=== PATIENT | male | born 1990 | race Caucasian/White ===

== ENCOUNTER 2020-02-11 11:05 | Inpatient (IN) | payer MEDICAID, OTHER, SELFPAY ==
[~2020-02-11] VITALS: Ht 193 cm; Wt 99.1 kg
[~2020-02-11 11:05] MED LIST: NO HOME MEDS
[2020-02-11 11:32] LABS: BASOPHILS # (AUTO) 0.1 X10'3 (0-0.2); BASOPHILS % (AUTO) 0.8 % (0-1); EOSINOPHILS # (AUTO) 0.1 X10'3 (0-0.9); EOSINOPHILS % (AUTO) 1.3 % (0-6); HEMATOCRIT 44.2 % (42.0-52.0); HEMOGLOBIN 15.1 g/dl (14.0-17.9); LYMPHOCYTES # (AUTO) 1.6 X10'3 (1.1-4.8); LYMPHOCYTES % (AUTO) 23.6 % (21-51); MEAN CORPUSCULAR HEMOGLOBIN 30.1 PG (27.0-31.0); MEAN CORPUSCULAR HGB CONC 34.1 g/dL (33.0-36.5); MEAN CORPUSCULAR VOLUME 88.2 FL (78-98); MEAN PLATELET VOLUME 9.5 FL (7.4-10.4); MONOCYTES # (AUTO) 0.6 X10'3 (0-0.9); MONOCYTES % (AUTO) 9.6 % (2-12); NEUTROPHILS # (AUTO) 4.3 X10'3 (1.8-7.7); NEUTROPHILS % (AUTO) 64.7 % (42-75); PLATELET COUNT 200 X10'3 (140-440); RED BLOOD COUNT 5.01 X10'6 (4.70-6.10); RED CELL DISTRIBUTION WIDTH 12.6 % (11.5-14.5); WHITE BLOOD COUNT 6.6 X10'3 (4.5-11.0)
[2020-02-11] MEDS ORDERED: NO HOME MEDS (11:37)
[2020-02-11 11:42] LABS: PARTIAL THROMBOPLASTIN TIME 29 SECONDS (22-32)
[2020-02-11 11:49] LABS: ALANINE AMINOTRANSFERASE 27 U/L (12-78); ALBUMIN 4.4 G/DL (3.4-5.0); ALBUMIN/GLOBULIN RATIO 1.3 (1.1-1.5); ALKALINE PHOSPHATASE 103 IU/L (46-116); ANION GAP 5 (8-16); ASPARTATE AMINO TRANSFERASE 19 U/L (10-37); BILIRUBIN,TOTAL 0.4 MG/DL (0.1-1.0); BLOOD UREA NITROGEN 14 MG/DL (7-18); BUN/CREATININE RATIO 15.6 (5.4-32.0); CALCIUM 9.7 MG/DL (8.5-10.1); CHLORIDE 105 MMOL/L (99-107); GLUCOSE 76 MG/DL (70-104); POTASSIUM 4.3 MMOL/L (3.5-5.1); SODIUM 142 MMOL/L (135-145); TOTAL CARBON DIOXIDE 32.3 MMOL/L (24-32); TOTAL PROTEIN 7.9 G/DL (6.4-8.2); eGFR > 90 ML/MIN
[2020-02-11] MEDS ORDERED: magnesium Cl slow-release 64mg tablet PO PRN (13:50)
[2020-02-11] MEDS ORDERED: potassium Cl 20 mEq SR tablet PO PRN ×2 (13:50)
[2020-02-11] MEDS ORDERED: HYDROcodone/acetaminophen 5mg/325mg tablet PO PRN (13:50)
[2020-02-11] MEDS ORDERED: potassium CL 10mEq/100ml bag 100 ML IV PRN (13:50)
[2020-02-11] MEDS ORDERED: acetaminophen 325mg tablet PO PRN ×2 (13:50)
[2020-02-11] MEDS ORDERED: magnesium 2GM in 50ml NS 50 ML IV PRN (13:50)
[2020-02-11] MEDS ORDERED: magnesium hydroxide 30ml (MOM) UD suspension PO PRN (13:50)
[2020-02-11] MEDS ORDERED: mag hydrox/Alum hydrox/simeth 30ml oral suspension PO PRN (13:50)
[2020-02-11] MEDS ORDERED: morphine 2 MG/ML inj. syringe IV PRN (13:50)
[2020-02-11] MEDS ORDERED: ondansetron/PF 4mg/2ml inj IV PRN (13:50)
[2020-02-11] MEDS ORDERED: magnesium 4gm in 100ml NS 100 ML IV PRN (13:50)
[2020-02-11] MEDS: normal saline 1000ml 1,000 ML IV SCH (14:18)
[2020-02-11 14:45] VITALS: BP 135/88
[2020-02-11 18:00] VITALS: BP 115/72
--- NOTE | 2020-02-11 18:11 | NUR ---
Problems reprioritized. Patient report given, questions answered & plan of care reviewed with Sheron Sy RN.
--- NOTE | 2020-02-11 18:47 | NUR ---
Patient in room [facility]. I have received report from WHITNEY Mcfarland and had the opportunity to ask questions and assume patient care. Addendum: 02/11/20 at 1847 by Sheron Cerda RN Amended: Links added.
[2020-02-11] MEDS: heparin, porcine 5000 units/ml vial SQ SCH (19:50)
[2020-02-11] MEDS: K and/or MAG REPLACEMENT MC SCH (20:00)
[2020-02-11] MEDS ORDERED: temazepam 15mg capsule PO PRN (21:00)
[2020-02-12] VITALS (24 sets, daily range): BP systolic 93–163; BP diastolic 47–87
[2020-02-12] MEDS: normal saline 1000ml 1,000 ML IV SCH ×3 (00:07→19:21)
[2020-02-12 05:57] LABS: BASOPHILS % (AUTO) 0.5 % (0-1); EOSINOPHILS # (AUTO) 0.1 X10'3 (0-0.9); EOSINOPHILS % (AUTO) 1.1 % (0-6); HEMATOCRIT 41.1 % (42.0-52.0); LYMPHOCYTES # (AUTO) 2.1 X10'3 (1.1-4.8); LYMPHOCYTES % (AUTO) 27.6 % (21-51); MEAN CORPUSCULAR HEMOGLOBIN 29.7 PG (27.0-31.0); MEAN CORPUSCULAR VOLUME 87.4 FL (78-98); MEAN PLATELET VOLUME 9.7 FL (7.4-10.4); MONOCYTES # (AUTO) 0.7 X10'3 (0-0.9); NEUTROPHILS # (AUTO) 4.5 X10'3 (1.8-7.7); NEUTROPHILS % (AUTO) 60.8 % (42-75); PLATELET COUNT 186 X10'3 (140-440); RED CELL DISTRIBUTION WIDTH 12.8 % (11.5-14.5); WHITE BLOOD COUNT 7.4 X10'3 (4.5-11.0)
[2020-02-12] MEDS ORDERED: famotidine 20mg tablet PO ONE (06:00)
[2020-02-12] MEDS ORDERED: ringers solution, lacted 1,000 ML IV ONE (06:00)
[2020-02-12 06:16] LABS: ALANINE AMINOTRANSFERASE 23 U/L (12-78); ALBUMIN 3.8 G/DL (3.4-5.0); ALBUMIN/GLOBULIN RATIO 1.2 (1.1-1.5); ALKALINE PHOSPHATASE 90 IU/L (46-116); ANION GAP 6 (8-16); ASPARTATE AMINO TRANSFERASE 16 U/L (10-37); BILIRUBIN,TOTAL 0.7 MG/DL (0.1-1.0); BLOOD UREA NITROGEN 13 MG/DL (7-18); BUN/CREATININE RATIO 15.7 (5.4-32.0); CALCIUM 8.7 MG/DL (8.5-10.1); CHLORIDE 107 MMOL/L (99-107); CREATININE 0.83 MG/DL (0.60-1.10); GLUCOSE 90 MG/DL (70-104); POTASSIUM 4.1 MMOL/L (3.5-5.1); SODIUM 141 MMOL/L (135-145); eGFR > 90 ML/MIN
--- NOTE | 2020-02-12 06:31 | NUR ---
Problems reprioritized. Patient report given, questions answered & plan of care reviewed with WHITNEY Pereira.
--- NOTE | 2020-02-12 06:31 | NUR ---
Patient in room [facility]. I have received report from Lissy Law RN and had the opportunity to ask questions and assume patient care.
[2020-02-12] MEDS: heparin, porcine 5000 units/ml vial SQ SCH ×2 (07:14→19:22)
--- NOTE | 2020-02-12 07:14 | NUR ---
Heparin held. Pt is scheduled for surgery today.
[2020-02-12] MEDS: K and/or MAG REPLACEMENT MC SCH ×2 (08:00→20:00)
--- NOTE | 2020-02-12 09:28 | NUR ---
Chest X-Ray done this morning Radiologist reported right pneumothorax has increased from 3cm yesterday to 4cm today. Dr Wiley notified.
[2020-02-12] MEDS ORDERED: ondansetron/PF 4mg/2ml inj IV PRN ×2 (09:40→12:25)
[2020-02-12] MEDS ORDERED: labetalol 20mg/4ml (5mg/ml) syringe IV PRN (09:40)
[2020-02-12] MEDS ORDERED: hydrALAZINE 20mg/ml inj. IV PRN (09:40)
[2020-02-12] MEDS ORDERED: ringers solution, lacted 1,000 ML IV SCH (09:40)
[2020-02-12] MEDS ORDERED: morphine 4 MG/ML inj SYRINge IV PRN ×3 (09:40→12:25)
[2020-02-12] MEDS ORDERED: fentaNYL/PF 50MCG/1 ML 2ML syringe IV PRN ×2 (09:40)
[2020-02-12] MEDS ORDERED: morphine 2 MG/ML inj. syringe IV PRN (09:40)
[2020-02-12] MEDS ORDERED: BUPIVAcaine/PF 2.5mg/ml (0.25%) 10ml vial ONE (09:48)
[2020-02-12] MEDS ORDERED: rocuronium 10mg/ml inj IV ONE ×2 (09:49→11:24)
[2020-02-12] MEDS ORDERED: LIDOcaine 2% (20mg/ml) 5ml vial ONE (09:49)
[2020-02-12] MEDS ORDERED: propofol inj 20 ML IV ONE (09:49)
[2020-02-12] MEDS ORDERED: fentaNYL/PF 50MCG/1 ML 2ML syringe ONE (09:50)
[2020-02-12] MEDS ORDERED: BUPIVACAINE liposomal/PF 13.3 MG/ML vial IM ONE (09:50)
[2020-02-12] MEDS ORDERED: midazolam 2 mg/2 ml injection ONE (09:50)
[2020-02-12] MEDS ORDERED: sterile Talc 2 GM powder vial ONE ×2 (09:56→11:05)
--- NOTE | 2020-02-12 10:07 | NUR ---
Pt taken to OR. Report given to recovery nurse.
[2020-02-12] MEDS ORDERED: MIDAZolam 1mg/ml 10ml vial ONE (10:22)
[2020-02-12] MEDS ORDERED: sevoflurane 250ml liquid IH ONE (10:25)
[2020-02-12] MEDS ORDERED: ceFAZolin 1000mg inj ONE ×2 (11:07)
[2020-02-12] MEDS ORDERED: propofol 1000mg/100ml bottle 100 ML IV SCH (11:28)
[2020-02-12] MEDS ORDERED: albuterol 2.5 MG/3 ML nebule NEB PRN (12:25)
[2020-02-12] MEDS ORDERED: metoclopramide 5 mg/ml inj IV PRN (12:25)
[2020-02-12] MEDS ORDERED: CADD PCA waste documentation MC PRN (12:25)
[2020-02-12] MEDS ORDERED: HYDROcodone/acetaminophen 10/325mg tab PO PRN ×2 (12:25)
[2020-02-12] MEDS ORDERED: naloxone 0.4 mg/ml inj IV PRN (12:25)
--- NOTE | 2020-02-12 12:28 | NUR ---
PT RECEIVED TO ROOM 2042 FROM OR VIA BED ACCOMPANIED BY ANESTHESIOLOGIST DR RODAS, REPORT GIVEN. PT INTUBATED, 20 GAUGE ART LINE TO L WRIST, 20 GAUGE PIV L FA PATENT AND RUNNING LR AT 100 ML HR, F/C DRAINING CLEAR YELLOW URINE, 4X4 AND FOAM TAPE DRESSING CDI WITH CHEST TUBE TO LOW INTERMITTENT SUCTION RIGHT CHEST, SKIN PINK AND WARM, RICHARDSON, VSS, WRIST RESTRAINTS APPLIED BILATERALLY.
[2020-02-12] MEDS: FENTANYL-0.9 % NACL/PF 100 ML IV SCH ×2 (12:54→19:21)
[2020-02-12 12:56] LABS: ABG BASE EXCESS -2.4 mmol/L (-2.0-3.0); ABG HCO3 21.6 mmol/L (22.0-26.0); ABG PCO2 (T) 32.9 mmHg (35.0-45.0); ABG PO2 (T) 176.9 mmHg (83-108); FCOHb 0.3 % (0.5-1.5); FMetHb 0.2 % (0.3-1.12); FO2Hb 98.5 % (94-100); PATIENT TEMPERATURE 35.5; RESPIRATORY RATE 12 b/min; TIDAL VOLUME 650 mL; TOTAL HEMOGLOBIN 13.5 G/dl (14.0-17.9)
[2020-02-12] MEDS: propofol 1000mg/100ml bottle 100 ML IV SCH ×3 (12:57→20:55)
--- NOTE | 2020-02-12 13:18 | NUR ---
PT INTUBATED, 20 GAUGE ART LINE TO L WRIST, 20 GAUGE PIV L FA PATENT AND RUNNING LR AT 100 ML HR, F/C DRAINING CLEAR YELLOW URINE, 4X4 AND FOAM TAPE DRESSING CDI WITH CHEST TUBE TO LOW INTERMITTENT SUCTION RIGHT CHEST, SKIN PINK AND WARM, RICHARDSON, VSS, WRIST RESTRAINTS APPLIED BILATERALLY. SEE RT NOTES REGARDING VENTILATOR SETTINGS, LEFT IN CARE OF ICU NURSE DACIA
[2020-02-12] MEDS ORDERED: ceFAZolin inj. 1,000 MG in dextrose 5%-water 50ml 50 ML IV SCH (16:00)
[2020-02-12] MEDS: ceFAZolin 1GM/D5W- ADD-VANTAGE 50 ML IV SCH (17:28)
--- NOTE | 2020-02-12 18:26 | NUR ---
Patient report given, questions answered & plan of care reviewed with Rosa OLSON.
--- NOTE | 2020-02-12 18:30 | NUR ---
Patient in room ICU 2042. I have received report from WHITNEY Pollard and had the opportunity to ask questions and assume patient care. Patient intubated and sedated on the ventilator FiO2 40%. Patient with one chest tube to right chest, patent with air leak present.
[2020-02-12] MEDS: gabapentin 300mg capsule PO SCH (19:09)
[2020-02-12] MEDS: acetaminophen 325mg/10.15ml oral unit dose solution PO PRN (19:09)
[2020-02-13] VITALS (24 sets, daily range): BP systolic 83–178; BP diastolic 45–86
[2020-02-13] MEDS: propofol 1000mg/100ml bottle 100 ML IV SCH ×3 (00:03→13:24)
[2020-02-13] MEDS: dextrose 5%-normal saline 1,000 ML IV SCH ×2 (00:04→09:10)
[2020-02-13] MEDS: ceFAZolin 1GM/D5W- ADD-VANTAGE 50 ML IV SCH (00:14)
[2020-02-13] MEDS: acetaminophen 325mg/10.15ml oral unit dose solution PO PRN ×3 (01:30→20:04)
[2020-02-13 02:51] LABS: BASOPHILS % (AUTO) 0.4 % (0-1); EOSINOPHILS % (AUTO) 0.4 % (0-6); HEMATOCRIT 36.5 % (42.0-52.0); HEMOGLOBIN 12.4 g/dl (14.0-17.9); LYMPHOCYTES # (AUTO) 1.7 X10'3 (1.1-4.8); LYMPHOCYTES % (AUTO) 19.2 % (21-51); MEAN CORPUSCULAR HGB CONC 34.1 g/dL (33.0-36.5); MEAN CORPUSCULAR VOLUME 87.9 FL (78-98); MEAN PLATELET VOLUME 9.2 FL (7.4-10.4); MONOCYTES # (AUTO) 0.9 X10'3 (0-0.9); MONOCYTES % (AUTO) 10.4 % (2-12); NEUTROPHILS # (AUTO) 6.2 X10'3 (1.8-7.7); NEUTROPHILS % (AUTO) 69.6 % (42-75); PLATELET COUNT 139 X10'3 (140-440); RED BLOOD COUNT 4.15 X10'6 (4.70-6.10); RED CELL DISTRIBUTION WIDTH 12.6 % (11.5-14.5); WHITE BLOOD COUNT 8.9 X10'3 (4.5-11.0)
[2020-02-13 03:04] LABS: ALANINE AMINOTRANSFERASE 18 U/L (12-78); ALBUMIN 3.1 G/DL (3.4-5.0); ALBUMIN/GLOBULIN RATIO 1.2 (1.1-1.5); ALKALINE PHOSPHATASE 75 IU/L (46-116); ANION GAP 8 (8-16); ASPARTATE AMINO TRANSFERASE 19 U/L (10-37); BILIRUBIN,TOTAL 0.5 MG/DL (0.1-1.0); BLOOD UREA NITROGEN 9 MG/DL (7-18); BUN/CREATININE RATIO 10.8 (5.4-32.0); CALCIUM 7.9 MG/DL (8.5-10.1); CHLORIDE 108 MMOL/L (99-107); CREATININE 0.83 MG/DL (0.60-1.10); GLUCOSE 108 MG/DL (70-104); MAGNESIUM 1.6 MG/DL (1.5-2.4); POTASSIUM 3.4 MMOL/L (3.5-5.1); SODIUM 140 MMOL/L (135-145); TOTAL CARBON DIOXIDE 23.6 MMOL/L (24-32); TOTAL PROTEIN 5.7 G/DL (6.4-8.2); TRIGLYCERIDES 73 MG/DL (20-135); eGFR > 90 ML/MIN
[2020-02-13] MEDS: potassium CL 10mEq/100ml bag 100 ML IV PRN ×4 (03:46→07:23)
[2020-02-13] MEDS: FENTANYL-0.9 % NACL/PF 100 ML IV SCH ×2 (03:57→14:37)
--- NOTE | 2020-02-13 04:29 | NUR ---
[id number]: Patient awakens easily to verbal stimuli and with patient care activities. Patient able to follow commands and writes with pen and paper to communicate. Right chest tube with intermittent air leak, seems to resolve with repositioning to the right side. FiO2 on ventilator titrated down throughout shift. Patient is febrile temperature 38.7. Tylenol administered two separate times during shift per MD order. Ice packs to neck, groin and axilla applied to patient. Fan also at bedside. Temperature slowly decreasing. MD notified, hart cultures ordered.
[2020-02-13 04:31] LABS: ABG BASE EXCESS -2.5 mmol/L (-2.0-3.0); ABG HCO3 21.6 mmol/L (22.0-26.0); ABG OXYGEN SATURATION 97.1 % (95-98); ABG PCO2 (T) 37.3 mmHg (35.0-45.0); ABG PH (T) 7.386 (7.350-7.450); ABG PO2 (T) 102.7 mmHg (83-108); FMetHb 0.2 % (0.3-1.12); FO2Hb 96.9 % (94-100); PATIENT TEMPERATURE 38.1; PEEP 5 cm H2O; RESPIRATORY RATE 12 b/min; TIDAL VOLUME 650 mL; TOTAL HEMOGLOBIN 13.8 G/dl (14.0-17.9)
[2020-02-13] MEDS: normal saline 1000ml 1,000 ML IV SCH ×2 (05:02→19:57)
--- NOTE | 2020-02-13 06:30 | NUR ---
Patient in room ICU 2042. I have received report from Rosa OLSON and had the opportunity to ask questions and assume patient care.
--- NOTE | 2020-02-13 06:36 | NUR ---
Problems reprioritized. Patient report given, questions answered & plan of care reviewed with WHITNEY Jackson.
[2020-02-13] MEDS: K and/or MAG REPLACEMENT MC SCH ×2 (08:00→20:00)
[2020-02-13] MEDS: gabapentin 300mg capsule PO SCH ×2 (08:06→19:56)
[2020-02-13] MEDS: heparin, porcine 5000 units/ml vial SQ SCH ×2 (08:06→19:57)
[2020-02-13] MEDS ORDERED: dextrose 50%-water 50ml dispensing syringe IV ONE (08:22)
--- NOTE | 2020-02-13 08:34 | NUR ---
blood sugar 62, tx with D50 will re check in 15 min
--- NOTE | 2020-02-13 08:45 | NUR ---
patients blood sugar re check 104
--- NOTE | 2020-02-13 09:35 | NUR ---
patients sedation turned down, he woke up requesting to write a note, stated he was cold, wilson temp 38.8, temporal 36.8, axiallary 37.0. placed a warm blanket on patient, he has goose bumps, and is shivering. will rely on axillary temp from here on out
--- NOTE | 2020-02-13 14:47 | NUR ---
sedation turned off waiting for patient to wake up then we will extubate
--- NOTE | 2020-02-13 14:47 | NUR ---
Dr Wiley called stated to turn off all sedation and extubate patient
--- NOTE | 2020-02-13 15:00 | NUR ---
patient extubated, tolerated well, nc 2 L sating high 90's
[2020-02-13] MEDS ORDERED: HYDROmorphone inj. 0.5 MG/0.5 ML DISP.SYRIN IV PRN (15:20)
--- NOTE | 2020-02-13 15:20 | NUR ---
Dr. Wiley, by to assess patient, stated to D/C artline and steve, advance diet as tolerated one swallow eval is passed, pt eval, " get him up and walking"
--- NOTE | 2020-02-13 15:45 | NUR ---
Art line D/c, cannula intact patient tolerated well
--- NOTE | 2020-02-13 18:11 | NUR ---
Problems reprioritized. Patient report given, questions answered & plan of care reviewed with Bailey OLSON.
--- NOTE | 2020-02-13 18:30 | NUR ---
Patient in room ICU 2042. I have received report from Renetta OLSON and had the opportunity to ask questions and assume patient care.
[2020-02-14] VITALS (21 sets, daily range): BP systolic 98–133; BP diastolic 45–93
[2020-02-14] MEDS: normal saline 1000ml 1,000 ML IV SCH ×2 (01:46→11:46)
[2020-02-14] MEDS: acetaminophen 325mg/10.15ml oral unit dose solution PO PRN (02:20)
[2020-02-14 05:27] LABS: BASOPHILS % (AUTO) 0.1 % (0-1); EOSINOPHILS % (AUTO) 0.1 % (0-6); HEMATOCRIT 37.9 % (42.0-52.0); HEMOGLOBIN 12.8 g/dl (14.0-17.9); LYMPHOCYTES # (AUTO) 0.7 X10'3 (1.1-4.8); LYMPHOCYTES % (AUTO) 5.1 % (21-51); MEAN CORPUSCULAR HEMOGLOBIN 29.7 PG (27.0-31.0); MEAN CORPUSCULAR HGB CONC 33.7 g/dL (33.0-36.5); MEAN CORPUSCULAR VOLUME 88.1 FL (78-98); MONOCYTES % (AUTO) 7.2 % (2-12); NEUTROPHILS # (AUTO) 11.8 X10'3 (1.8-7.7); NEUTROPHILS % (AUTO) 87.5 % (42-75); PLATELET COUNT 153 X10'3 (140-440); RED CELL DISTRIBUTION WIDTH 12.3 % (11.5-14.5); WHITE BLOOD COUNT 13.5 X10'3 (4.5-11.0)
[2020-02-14 05:48] LABS: ALANINE AMINOTRANSFERASE 24 U/L (12-78); ALBUMIN 3.2 G/DL (3.4-5.0); ALBUMIN/GLOBULIN RATIO 0.9 (1.1-1.5); ALKALINE PHOSPHATASE 86 IU/L (46-116); ANION GAP 10 (8-16); ASPARTATE AMINO TRANSFERASE 47 U/L (10-37); BLOOD UREA NITROGEN 8 MG/DL (7-18); BUN/CREATININE RATIO 9.4 (5.4-32.0); CALCIUM 9.1 MG/DL (8.5-10.1); CHLORIDE 105 MMOL/L (99-107); CREATININE 0.85 MG/DL (0.60-1.10); GLUCOSE 161 MG/DL (70-104); MAGNESIUM 1.7 MG/DL (1.5-2.4); POTASSIUM 3.3 MMOL/L (3.5-5.1); SODIUM 139 MMOL/L (135-145); TOTAL CARBON DIOXIDE 24.5 MMOL/L (24-32); TOTAL PROTEIN 6.6 G/DL (6.4-8.2); eGFR > 90 ML/MIN
--- NOTE | 2020-02-14 06:42 | NUR ---
Patient in room ICU 2042. I have received report from Bailey OLSON and had the opportunity to ask questions and assume patient care.
[2020-02-14] MEDS: gabapentin 300mg capsule PO SCH (07:52)
[2020-02-14] MEDS: heparin, porcine 5000 units/ml vial SQ SCH ×2 (07:53→20:38)
[2020-02-14] MEDS: K and/or MAG REPLACEMENT MC SCH ×2 (08:06→20:00)
[2020-02-14] MEDS ORDERED: morphine 4 MG/ML inj SYRINge IM ONE (16:15)
--- NOTE | 2020-02-14 16:29 | NUR ---
Dr. Wiley by to assess patient and D/C chest tube, tube D/C with no complications. Patient pre medicated with 4mg of morphine. D/C glucose checks, and NS. Patient can transfer out of the ICU. no other new orders at this time
--- NOTE | 2020-02-14 18:40 | NUR ---
Patient in room ICU 2042. I have received report from Renetta OLSON and had the opportunity to ask questions and assume patient care.
--- NOTE | 2020-02-15 04:50 | NUR ---
patient refused 0200 vital signs
[2020-02-15 05:56] LABS: BASOPHILS # (AUTO) 0.1 X10'3 (0-0.2); BASOPHILS % (AUTO) 0.7 % (0-1); EOSINOPHILS # (AUTO) 0.1 X10'3 (0-0.9); EOSINOPHILS % (AUTO) 0.9 % (0-6); HEMATOCRIT 38.3 % (42.0-52.0); HEMOGLOBIN 13.1 g/dl (14.0-17.9); LYMPHOCYTES # (AUTO) 1.1 X10'3 (1.1-4.8); LYMPHOCYTES % (AUTO) 10.3 % (21-51); MEAN CORPUSCULAR HEMOGLOBIN 30.2 PG (27.0-31.0); MEAN CORPUSCULAR HGB CONC 34.2 g/dL (33.0-36.5); MEAN CORPUSCULAR VOLUME 88.1 FL (78-98); MEAN PLATELET VOLUME 9.5 FL (7.4-10.4); MONOCYTES % (AUTO) 9.7 % (2-12); NEUTROPHILS # (AUTO) 8.1 X10'3 (1.8-7.7); NEUTROPHILS % (AUTO) 78.4 % (42-75); PLATELET COUNT 171 X10'3 (140-440); RED BLOOD COUNT 4.35 X10'6 (4.70-6.10); RED CELL DISTRIBUTION WIDTH 12.6 % (11.5-14.5); WHITE BLOOD COUNT 10.3 X10'3 (4.5-11.0)
--- NOTE | 2020-02-15 06:12 | NUR ---
Problems reprioritized. Patient report given, questions answered & plan of care reviewed with Swathi OLSON.
[2020-02-15 06:21] LABS: ALANINE AMINOTRANSFERASE 26 U/L (12-78); ALBUMIN 3.4 G/DL (3.4-5.0); ALBUMIN/GLOBULIN RATIO 0.9 (1.1-1.5); ALKALINE PHOSPHATASE 84 IU/L (46-116); ANION GAP 10 (8-16); ASPARTATE AMINO TRANSFERASE 33 U/L (10-37); BILIRUBIN,TOTAL 0.8 MG/DL (0.1-1.0); BLOOD UREA NITROGEN 10 MG/DL (7-18); BUN/CREATININE RATIO 13.3 (5.4-32.0); CALCIUM 9.1 MG/DL (8.5-10.1); CHLORIDE 104 MMOL/L (99-107); CREATININE 0.75 MG/DL (0.60-1.10); GLUCOSE 95 MG/DL (70-104); MAGNESIUM 1.8 MG/DL (1.5-2.4); POTASSIUM 3.9 MMOL/L (3.5-5.1); SODIUM 138 MMOL/L (135-145); TOTAL CARBON DIOXIDE 23.9 MMOL/L (24-32); TOTAL PROTEIN 7.3 G/DL (6.4-8.2); eGFR > 90 ML/MIN
--- NOTE | 2020-02-15 06:29 | NUR ---
Patient in room PCU 3022. I have received report from Manda OLSON and had the opportunity to ask questions and assume patient care.
[2020-02-15 06:30] VITALS: BP 122/70
[2020-02-15] MEDS: acetaminophen 325mg/10.15ml oral unit dose solution PO PRN (07:16)
[2020-02-15] MEDS: heparin, porcine 5000 units/ml vial SQ SCH (07:16)
[2020-02-15] MEDS: K and/or MAG REPLACEMENT MC SCH (08:00)
[2020-02-15 11:00] VITALS: BP 123/70
[2020-02-15] MEDS ORDERED: traMADol 50MG tablet PO PRN (11:55)
[2020-02-15 15:00] VITALS: BP 118/70
[2020-02-15] MEDS ORDERED: TRAM50TA2 PO ×2 (15:53→16:01)
--- NOTE | 2020-02-15 16:37 | NUR ---
Per MD, patient stable for discharge home. Discharge packet completed and provided to patient, all questions answered. Hardcopy of Tramadol given to patient from Dr Wiley, as well as copy placed in chart. Patient given phone number for Dr Yoo office to call and make followup appt tomorrow. Patient also educated to leave bandage on surgical site until Friday, 02/17 and to cover site during shower. IV removed with catheter intact and tele monitor removed and returned to teletray operator. Patient escorted from hospital via wheelchair, accompanied by RN, and driven home with mother in private vehicle.
== END 2020-02-15 16:37 | disposition home or self-care (01) | DRG 121 ==
LOC: ER 11:05 → ED HOLD 13:46 → UNDOADMIN 13:46 → ED HOLD 14:02 → SUR 3N 15:00 → ED HOLD 15:00 → ICU 2S 02-12 12:30 → PCU 3S 02-14 20:16
PROVIDERS: ADMIT Internal Medicine; ATTEND Internal Medicine
PROC: 0BBC4ZZ Excision of Right Upper Lung Lobe, Percutaneous Endoscopic Approach (ICD-10-PCS; 2020-02-12)
PROC: 0W9940Z Drainage of Right Pleural Cavity with Drainage Device, Percutaneous Endoscopic Approach (ICD-10-PCS; 2020-02-12)
PROC: 0B5N4ZZ Destruction of Right Pleura, Percutaneous Endoscopic Approach (ICD-10-PCS; principal; 2020-02-12 10:25)
DX: J93.83 Other pneumothorax (principal); J30.2 Other seasonal allergic rhinitis
CPT/HCPCS: 36415; 36600; 71045; 71046; 80053; 82803; 82948; 83605; 83735; 84478; 84484; 85018; 85025; 85610; 85730; 87040; 87070; 87081; 87088; 93005; 94002; 94003; 94668; 94760; 97110; 97161; 97530; 99285; A4618; A6258; A6449; A7000; A7048; C1758; C9250; C9290; G0378; J0690; J1644; J2001; J2250; J2270; J2405; J2704; J3010; J3480; J3490; J7030; J7042; J7120